=== PATIENT | female | born 1960 | race Caucasian/White ===

== ENCOUNTER 2017-07-10 08:28 | Emergency (ER) | payer OTHER, SELFPAY ==
[2017-07-10 08:35] VITALS: BP 144/90; PULSE 85; RESP 20; TEMP 36.8; O2SAT 96; BMI 23.5
[2017-07-10 09:03] LABS: Strep Scrn Group A (Rapid) Negative (Negative)
--- NOTE | 2017-07-10 09:20 | HMH.EDGENADL ---
ED Disposition Clinical Impression: Acute bronchitis Qualifiers: Bronchitis organism: unspecified organism Qualified Code(s): J20.9 - Acute bronchitis, unspecified Disposition: Home, Self-Care Condition on Discharge: Good Additional Instructions: Please take antibiotics prescribed as directed, follow-up with PCP if not better. Prescriptions: Amoxicillin/Potassium Clav [Augmentin 875-125 Tablet] 1 tab PO Q12H #20 tab Referrals: Ady Blue MD [Primary Care Provider] - Time of Disposition: 09:20 - Critical Care Critical Care Time: No Attestation: On 07/10/17, the high probability of a clinically significant, sudden or life threatening deterioration of the following system(s) required my full and direct attention, intervention and personal management. The time I documented below is in addition to time spent performing reported procedures but includes the following listed in this critical care notation. Medical Decision Making - Medical Records Medical records reviewed: Yes: I reviewed the patient's medical records. Vital Signs: 07/10/17 08:35 07/10/17 09:32 Temperature 98.2 F 98.2 F Temperature Source Oral Oral Pulse Rate 71 Pulse Rate [Right Radial] 85 Respiratory Rate 20 20 Blood Pressure 128/87 Blood Pressure [Right Arm] 144/90 Blood Pressure Mean [Right Arm] 108 Blood Pressure Source Automatic Cuff Blood Pressure Source [Right Arm] Automatic Cuff Blood Pressure Position Sitting Blood Pressure Position [Right Arm] Sitting 02 Sat by Pulse Oximetry 96 Oxygen Delivery Method Room Air Room Air - Lab Data Lab Results 07/10/17 08:48: Influenza Type A Ag Negative, Influenza Type B Ag Negative, Group A Strep Rapid Negative - Radiology Data #1 Image(s): Chest Image Reviewed: Yes I reviewed the patient's radiology image, Yes I have reviewed radiologist's interpretation Preliminary Findings: Normal/NAD - See Inquiry Pt receiving controlled substance: No - Reevaluation(s) Time: 09:15 Reevaluation #1: Upon reevaluation patient appears stable, no acute distress. Advise patient of results obtained and need to initiate antibiotic treatment at this time. She will follow-up with PCP if not better per discharge instructions. General Adult HPI - General Chief complaint: Upper Respiratory Infection Stated complaint: congestion back aching rib pain Mode of Arrival: Ambulatory Limitations: No Limitations - History of Present Illness HPI narrative: This is a 57-year-old female patient arriving to the emergency room with productive cough, congestion, subjective fever, for the past 2-3 days. Patient denies any recent travel or exposure to sick contacts. Onset (ago): day(s) (2) Location: chest Radiation: back Severity: moderate Severity scale (1-10): 4 Quality: aching Consistency: intermittent Relieving factors: cold therapy - Related Data Previous Rx's Medication Instructions Recorded Amoxicillin/Potassium Clav 1 tab PO Q12H #20 tab 07/10/17 [Augmentin 875-125 Tablet] Allergies Allergy/AdvReac Type Severity Reaction Status Date / Time Sulfa (Sulfonamide Allergy Unknown Unverified 07/05/17 08:45 Antibiotics) [SULFA (SULFONAMIDE ANTIBIOTICS)] [facility] History I have reviewed the patient's past medical history: Yes Other Surgeries: Yes: - *Social History Smoking Status: Never smoker Alcohol Intake: never Substance Use Type: denies use - Psychiatric History Expresses thoughts of harming self/others: None Suicide Plan Description: No Plan *Family Hx:: Anemia, Cancer ROS Obtained: Yes All systems reviewed & no additional complaints - Respiratory Respiratory: Yes as per HPI, Yes chest congestion, Yes dyspnea Physical Exam - General General appearance: alert, in no apparent distress - ENT ENT exam: Present: normal exam, normal oropharynx, mucous membranes moist, TM's normal bilaterally, normal external ear e
[2017-07-10 09:32] VITALS: BP 128/87; PULSE 71; RESP 20; TEMP 36.8; O2SAT 100
== END 2017-07-10 09:37 | disposition home or self-care (01) ==
PROVIDERS: Emergency Provider Emergency Medicine; Family Provider Family Medicine; PCP Family Medicine
DX: J20.9 Acute bronchitis, unspecified (principal)
CPT/HCPCS: 87275; 87276; 87430; 99282

== ENCOUNTER → 2019-05-22 20:06 | Outpatient (CLI) | payer OTHER, SELFPAY ==
[2019-05-22 20:09] LABS: Microscopic, Urine URINE MICROSCOPIC (MICROSCOPIC)
[2019-05-22 20:46] LABS: Appearance,Urine CLEAR (Clear); Bilirubin,Urine Negative (Negative); Blood, Urine TRACE-I (Negative); Color,Urine YELLOW (Yellow); Glucose,Urine (UA) Negative (Negative); Ketones,Urine Negative (Negative); Leukocyte Esterase,Urine 2+ (Negative); Nitrate,Urine Negative (Negative); PH,Urine 6.5 (5.0-8.5); Protein,Urine Negative (Negative); Specific Gravity, Urine <= 1.005 (1.005-1.030); Urobilinogen,Urine 0.2 EU/dl (0.2)
[2019-05-22 21:24] LABS: Bacteria,Urine Trace /lpf; Squamous Epithelial Cell,Urine Occasional #/hpf (0-5)
== END ==
PROVIDERS: Visit Provider Nurse Practitioner Family
DX: R30.0 Dysuria (principal)
CPT/HCPCS: 81001; 87086; 87088; 87186

== ENCOUNTER 2020-07-06 19:43 | Emergency (ER) | payer OTHER, SELFPAY ==
[2020-07-06 20:04] VITALS: BP 160/114; PULSE 117; RESP 18; TEMP 36.5; O2SAT 96; BMI 26.6
--- NOTE | 2020-07-06 20:09 | CT_ITS ---
PROCEDURE: CT HEAD/BRAIN WO CON CLINICAL INDICATION: fall, hit face Head injury with headache/pain, contusion, abrasion or hematoma COMPARISON: No exams were available for comparison TECHNIQUE: Axial images obtained. All CT scans at the facility use one or more dose reduction, viz: automated exposure control, ma/kV adjustment per patient size (including targeted exams where dose is matched to indication, i.e. head), or iterative reconstruction technique. FINDINGS: No midline shift, mass effect, intracranial hemorrhage, hydrocephalus, or extra-axial fluid collection is evident. The calvarium has an unremarkable appearance. No mastoid effusion. No sinus air-fluid level. IMPRESSION: No acute intracranial finding Dictated by: Brandon Oliva MD 07/07/2020 06:03 Brandon Oliva MD in [place] 07/07/2020 06:03
--- NOTE | 2020-07-06 20:09 | XR_ITS ---
PROCEDURE: XR CHEST PORTABLE CLINICAL HISTORY: Pain following injury COMPARISON: No exams were available for comparison FINDINGS: The cardiomediastinal silhouette and pulmonary vascularity are within normal limits. Atelectatic change versus fibrosis left lung base. The remaining lungs are clear. No acute bony abnormalities. IMPRESSION: Left lower lobe atelectasis versus scarring otherwise negative Dictated by: Brandon Oliva MD 07/07/2020 05:16 Brandon Oliva MD in [facility] 07/07/2020 05:16
--- NOTE | 2020-07-06 20:09 | XR_ITS ---
PROCEDURE: XR PELVIS 1-2V CLINICAL INDICATION: Trauma protocol pain COMPARISON: No exams were available for comparison TECHNIQUE: XR Pelvis AP View FINDINGS: No fracture or dislocation is evident. No significant degenerative change. No lytic or blastic change. IMPRESSION: No acute findings. Dictated by: Brandon Oliva MD 07/07/2020 05:17 Brandon Oliva MD in [facility] 07/07/2020 05:17
--- NOTE | 2020-07-06 20:09 | CT_ITS ---
PROCEDURE: CT CERVICAL SPINE WO CON CLINICAL INDICATION: fall, hit face Neck injury with pain, contusion/abrasion or hematoma, cervical sprain/strain the COMPARISON: No exams were available for comparison TECHNIQUE: Axial images obtained with sagittal and coronal reformats. All CT scans at the facility use one or more dose reduction, viz: automated exposure control, ma/kV adjustment per patient size (including targeted exams where dose is matched to indication, i.e. head), or iterative reconstruction technique. Axial spiral CT scanning performed of the cervical spine beginning at the base of the skull and continuing to the upper T-spine. 3-D multiplanar reconstruction with 3-D manipulation of volumetric data set in image rendering was completed by the radiologist and/or technologist with the supervision of the radiologist on independent workstation. FINDINGS: There is normal alignment. No fracture or dislocation evident. No lytic or blastic change. There is degenerative disc disease at C3-C4 C4-C5 C5-C6 and C6-C7. There is 3 mm anterolisthesis of C7 on T1 which may be degenerative in nature. Facet and uncovertebral hypertrophy is present. There is a small right paracentral disc osteophyte complex at C3-C4 causing right-sided foraminal narrowing. Canal stenosis is present at C5-C6 and C6-C7 with bilateral foraminal narrowing at C5-C6. An 8 mm hypodense nodule is present in the left lobe of the thyroid gland. There is moderate bilateral osteoarthritic change of the TMJs. IMPRESSION: 1. No acute fracture. 2. Multilevel cervical spondylosis as detailed above Dictated by: Brandon Oliva MD 07/07/2020 06:08 Brandon Oliva MD in [facility] 07/07/2020 06:08
--- NOTE | 2020-07-06 20:09 | CT_ITS ---
PROCEDURE: CT FACIAL BONES WO CON CLINICAL HISTORY: fall, hit face Pain and swelling following injury COMPARISON: CT CT CERVICAL SPINE WO CON from 07/06/2020 TECHNIQUE: Axial images obtained with sagittal and coronal reformats. All CT scans at the facility use one or more dose reduction, viz: automated exposure control, ma/kV adjustment per patient size (including targeted exams where dose is matched to indication, i.e. head), or iterative reconstruction technique. FINDINGS: Suspect nondisplaced fracture involving the right medial maxillary incisor root with associated soft tissue swelling. Left medial maxillary incisor is missing. There is a defect involving the medial aspect of the right maxillary medial incisor. No sinus air-fluid level or other significant anomalies evident. IMPRESSION: Dental injury with suspected nondisplaced fracture of the right paramedian maxilla with missing left medial maxillary incisor and defect involving the medial aspect of the right medial maxillary incisor with soft tissue swelling Dictated by: Brandon Oliva MD 07/07/2020 06:13 Brandon Oliva MD in [place] 07/07/2020 06:13
[2020-07-06 20:27] LABS: Basophils # 0.1 K/mm3 (0-0.2); Basophils % 1.2 % (0.1-2.0); Eosinophils # 0.1 K/mm3 (0.0-0.4); Eosinophils % 1.6 % (0.1-12.0); Hematocrit 42.3 % (37.0-47.0); Hemoglobin 14.9 g/dL (12.2-16.2); Lymphocytes # 2.5 K/mm3 (0.7-4.5); Lymphocytes % 38.2 % (10-50); Mean Corpuscular HGB Conc 35.2 g/dL (31.8-35.4); Mean Corpuscular Volume 90.8 fl (81-99); Mean Platelet Volume 7.9 fl (7.4-10.4); Monocytes # 0.3 K/mm3 (0.1-1.0); Monocytes % 4.1 % (1.7-9.3); Neutrophils # 3.7 K/mm3 (1.8-7.8); Neutrophils % 54.9 % (37.0-80.0); Platelet Count 340 K/mm3 (142-424); Red Blood Count 4.66 M/mm3 (4.20-5.40); White Blood Count 6.7 K/mm3 (4.8-10.8)
[2020-07-06 20:28] LABS: Chloride 105 mmol/L (98-107); Sodium 141 mmol/L (136-145)
[2020-07-06 20:29] LABS: Potassium 4.2 mmoL/L (3.5-5.1)
--- NOTE | 2020-07-06 20:30 | PC.NURSE ---
tooth placed in milk. pt to rad for diagnostic exams
[2020-07-06 20:31] LABS: Alanine Aminotransferase 17 U/L (12-78); Albumin Level 5.2 g/dl (3.5-5.0); Alkaline Phosphatase 83 U/L (38-126); Anion Gap 14.2 mEq/L (5-15); Aspartate Amino Transferase 37 U/L (14-36); Bilirubin,Direct 0.2 mg/dl (0.0-0.4); Bilirubin,Indirect 0.1 mg/dL (0.0-0.9); Bilirubin,Total 0.3 mg/dl (0.2-1.3); Bilirubin,Unconjugated 0.1 mg/dL (0.0-1.1); Blood Urea Nitrogen 9 mg/dl (7-17); Calcium 10.1 mg/dl (8.4-10.2); Carbon Dioxide 26 mmol/L (22.0-30.0); Creatinine Clearance Estimated 105 mL/min (50-200); Estimated Glomerular Filt Rate 86 ml/min (>60); GFR (African American) 104 ML/MIN (>60); Glucose 106 mg/dl (74-100); Total Protein,Serum 8.1 g/dl (6.3-8.2)
[2020-07-06 20:32] LABS: Ethyl Alcohol 171 mg/dl (0-10)
--- NOTE | 2020-07-06 20:49 | HMH.EDFALL ---
ED Disposition Clinical Impression: Maxillary fracture Qualifiers: Encounter type: initial encounter Fracture type: closed Laterality: right Qualified Code(s): S02.40CA - Maxillary fracture, right side, initial encounter for closed fracture Dental trauma Qualifiers: Encounter type: initial encounter Qualified Code(s): S09.93XA - Unspecified injury of face, initial encounter Fall Qualifiers: Encounter type: initial encounter Qualified Code(s): W19.XXXA - Unspecified fall, initial encounter Disposition: Home, Self-Care Condition on Discharge: Good Instructions: DI for Dental Pain Additional Instructions: ice and call dentist in am Prescriptions: clindamycin HCL [Clindamycin HCl] 300 mg PO TID #30 cap Transmission Status: Pending to [facility] #[id number] Referrals: Ady Blue MD [Primary Care Provider] - - Critical Care Critical Care Time: No Attestation: On 07/06/20, the high probability of a clinically significant, sudden or life threatening deterioration of the following system(s) required my full and direct attention, intervention and personal management. The time I documented below is in addition to time spent performing reported procedures but includes the following listed in this critical care notation. Medical Decision Making - Medical Records Medical records reviewed: Yes: I reviewed the patient's medical records. - See Inquiry Pt receiving controlled substance: No Vital Signs: 07/06/20 20:04 Temperature 97.7 F Temperature Source Oral Pulse Rate [Right Brachial] 117 H Respiratory Rate 18 Blood Pressure [Right Arm] 160/114 H Blood Pressure Mean [Right Arm] 129 Blood Pressure Source [Right Arm] Automatic Cuff Blood Pressure Position [Right Arm] Sitting 02 Sat by Pulse Oximetry 96 Oxygen Delivery Method Room Air - Lab Data Lab results reviewed: Yes: I reviewed the patient's lab results. Lab Results 07/06/20 20:15: WBC 6.7, RBC 4.66, Hgb 14.9, Hct 42.3, MCV 90.8, MCH 32.0 H, MCHC 35.2, RDW 14.0, Plt Count 340, MPV 7.9, Neut % (Auto) 54.9, Lymph % (Auto) 38.2, [place] % (Auto) 4.1, Eos % (Auto) 1.6, Baso % (Auto) 1.2, Neut # (Auto) 3.7, Lymph # (Auto) 2.5, [place] # (Auto) 0.3, Eos # (Auto) 0.1, Baso # (Auto) 0.1 07/06/20 20:15: Sodium 141, Potassium 4.2, Chloride 105, Carbon Dioxide 26, Anion Gap 14.2, BUN 9, Creatinine 0.70, Estimated Creat Clear 105, Estimated GFR 86, Est GFR ( Amer) 104, Glucose 106 H, Calcium 10.1, Total Bilirubin 0.3, Direct Bilirubin 0.2, Conjugated Bilirubin 0.0, Indirect Bilirubin 0.1, Unconjugated Bilirubin 0.1, AST 37 H, ALT 17, Alkaline Phosphatase 83, Total Protein 8.1, Albumin 5.2 H 07/06/20 20:15: Plasma/Serum Alcohol 171 H Result diagrams: 07/06/20 20:15 07/06/20 20:15 Orders (Tests/Meds): ORDERS Category Date Time Status CT cervical spine wo con Stat Cat Scan 07/06/20 20:[address] facial bones wo con Stat Cat Scan 07/06/20 20:[address] head/brain wo con Stat Cat Scan 07/06/20 20:09 Taken Chest XR -- portable [XR chest portable] Stat Exams 07/06/20 20:09 Taken XR pelvis 1-2V Stat Exams 07/06/20 20:09 Taken - Radiology Data #1 Image(s): Chest, Pelvis Image Reviewed: Yes I reviewed the patient's radiology image Preliminary Findings: No Fracture Seen - CT Data CT Scan: Head, C-Spine, Other (facial) Time Received: 21:[address] Reviewed: Yes: I discussed the CT results w/the radiologist Preliminary Findings: Abnormal (dental trauma/maxilla fx ) Medical Decision Narrative: will need to call dentist in am Fall HPI - General Chief Complaint: Fall Stated Complaint: ao 2/2 fell hit on face missing teeth Time Seen by Provider: 07/06/20 20:15 Mode of Arrival: Family Vehicle Source of Information: Patient, Medical Record Limitations: No Limitations Description of Symptoms (Recalled from ER Triage Doc. by RN): leaving local restaraunt, slipped on ice and landed on her face. one front tooth broke out of her mouth f
[2020-07-06 21:41] VITALS: BP 118/75; PULSE 73; RESP 19; TEMP 36.9; O2SAT 98
== END 2020-07-06 21:44 | disposition home or self-care (01) ==
PROVIDERS: Emergency Medicine; Emergency Provider Emergency Medicine; PCP Family Medicine
DX: S02.40CA Maxillary fracture, right side, initial encounter for closed fracture (principal); S09.93XA Unspecified injury of face, initial encounter; K08.109 Complete loss of teeth, unspecified cause, unspecified class; W00.2XXA Other fall from one level to another due to ice and snow, initial encounter; Y92.511 Restaurant or cafe as the place of occurrence of the external cause; Z88.2 Allergy status to sulfonamides
CPT/HCPCS: 70450; 70486; 71045; 72125; 72170; 80048; 80076; 85025; 99282

== ENCOUNTER 2020-11-28 09:54 | Emergency (ER) | payer OTHER, SELFPAY ==
[2020-11-28 09:55] VITALS: BP 144/89; PULSE 118; RESP 23; TEMP 37.4; O2SAT 98; BMI 27.8
--- NOTE | 2020-11-28 10:18 | HMH.EDUTC ---
[facility] [place] Disposition Clinical Impression: Rash Disposition: Home, Self-Care Condition on Discharge: Good Instructions: Poison [place], Poison [place], Poison [place], DI for General Allergic Reactions Additional Instructions: Oatmeal bathes may help with itching and drying up of the rash Calamine lotion may help to dry the rash Over the counter Benadryl may help with itching associated with rash Start Oral Steriods tomorrow Return if needed Follow up with Family Doctor Look around and make sure that there is nothing growing around you that may be causing breakout Keep your rash clean and dry: Wash it with soap and water. Gently pat it dry with a clean towel. Try not to scratch or rub your rash: This can cause your skin to become infected. Use a compress on your rash: Dip a clean washcloth in cool water. Wring it out and place it on your rash. Leave the washcloth on your skin for 15 minutes. Do this at least 3 times per day. Wear skin protection: Wear long pants, a long-sleeved shirt, and gloves. Use a skin block lotion to protect your skin from poison cassandra oil. You can find this at a drugstore without a prescription. Wash clothing after possible exposure: If you think you have been near a poison cassandra plant, wash the clothes you were wearing separately from other clothes. Rinse the washing machine well after you take the clothes out. Scrub boots and shoes with warm, soapy water. Dry clean items and clothing that you cannot wash in water. Poison cassandra oil is sticky and can stay on surfaces for a long time. It can cause a new rash even years later. Bathe your pet: Use warm water and shampoo on your pet's fur. This will prevent the spread of oil to your skin, car, and home. Wear long sleeves, long pants, and gloves while washing pets or any items that may have oil on them. Reduce exposure to poison cassandra: Do not touch plants that look like poison cassandra. Keep your yard free of poison cassandra. While protecting your skin, remove the plant and the roots. Place them in a plastic bag and seal the bag tightly. Do not burn poison cassandra plants: This can spread the oil through the air. If you breathe the oil into your lungs, you could have swelling and serious breathing problems. Oil that clings to the fire wilver can land on your skin and cause a rash. Prescriptions: predniSONE [Prednisone 10mg Tab Dose-Pack] 10 mg PO UD DOSE PK 6 Days #21 pack Transmission Status: Pending to [facility] #[id number] Referrals: Ady Blue MD [Primary Care Provider] - As needed Time of Disposition: 10:47 Medical Decision Making - See Inquiry Pt receiving controlled substance: No See was queried for this patient: No Vital Signs: 11/28/20 09:55 11/28/20 10:33 Temperature 99.4 F 99.4 F Temperature Source Oral Pulse Rate 118 H Pulse Rate [Left Brachial] 118 H Respiratory Rate 23 23 Blood Pressure 144/89 H Blood Pressure [Left Arm] 144/89 H Blood Pressure Mean [Left Arm] 107 Blood Pressure Source [Left Arm] Automatic Cuff Blood Pressure Position [Left Arm] Sitting 02 Sat by Pulse Oximetry 98 Oxygen Delivery Method Room Air Orders (Tests/Meds): ED MEDICATIONS Discontinued Medications Generic Name Dose Route Start Last Admin Trade Name Silver PRN Reason Stop Dose Admin Methylprednisolone Sodium Succinate 125 mg 11/28/20 10:22 11/28/20 10:27 Methylprednisolone Sod Succ 125mg Vial IM 11/28/20 10:23 125 mg ONCE ONE Administration Medical Decision Narrative: Patient reports that she has taken Prednisone in the past without complications or reactions [facility] [place] HPI - General Stated complaint: red splotches on face and neck Time Seen by Provider: 11/28/20 10:18 Mode of Arrival: Ambulatory Source of Information: Patient Limitations: No Limitations Description of Symptoms (Recalled from Triage Doc. by RN): PATIENT C/O ITCHY RASH ALL OVER THAT STARTED SUNDAY. UKNOWN ORIGIN HEENT Symptoms (Recalled from RN notes): No Resp Symptoms (Recalled from R
[2020-11-28 10:33] VITALS: BP 144/89; PULSE 118; RESP 23; TEMP 37.4; O2SAT 98
== END 2020-11-28 10:55 | disposition home or self-care (01) ==
PROVIDERS: Emergency Provider Nurse Practitioner; PCP Family Medicine
DX: R21 Rash and other nonspecific skin eruption (principal)
CPT/HCPCS: 96372; 99202; G0463

== ENCOUNTER 2022-07-04 10:54 | Emergency (ER) | payer OTHER, SELFPAY ==
[2022-07-04 11:00] VITALS: BP 151/91; PULSE 101; RESP 18; TEMP 36.8; O2SAT 98; BMI 26.1
[2022-07-04 11:17] VITALS: BP 151/91; PULSE 101; RESP 18; TEMP 36.8; O2SAT 98
[2022-07-04 11:17] LABS: Apearance,Urine Cloudy (Clear); Bilirubin,Urine Negative (Negative); Blood, Urine 3+ (Negative); Color,Urine Dark Yellow (Yellow); Glucose,Urine (UA) Negative (Negative); Ketones,Urine TRACE (Negative); Protein,Urine 2+ (Negative); UTC Leukocyte Esterase,Urine 3+ (Negative); UTC Nitrate,Urine Positive (Negative); Urobilinogen,Urine 0.2 EU/dl (0.2)
--- NOTE | 2022-07-04 11:19 | EXP.UTC ---
Discharge Plan Disposition Patient Disposition: Home, Self-Care Condition: Good Prescriptions Prescriptions: New cefdinir 300 mg capsule 300 mg PO BID Qty: 20 0RF phenazopyridine [Pyridium] 200 mg tablet 200 mg PO Q8H 2 Days Qty: 6 0RF Referrals Follow up/Referrals: Ady Blue MD [Primary Care Provider] - See instructions Activity Restrictions/Add. Instructions Additional Instructions/Restrictions: *Increase fluids. Water not Soda or Tea *Start antibiotic immediately and be sure to take as ordered for the FULL length of time although you should start to see improvement over the next 48 hours *Pyridium as needed Remember this medication will turn your urine . This is normal but it will stain what ever it gets on *You should not use Pyridium for more than 48 hours. If so , follow up with your primary physician to review urine culture and ensure that antibiotic is adequate for infection *Be SURE to follow up anytime for new or worsening symptoms with your family doctor. AND in 48 hours for urine culture results with your family doctor, if you do not have a doctor then you may call back to the [facility] for urine culture results and further treatment. We do recommend that you choose and establish care with a Primary Care Physician. ?AND follow up with them ?in 10-14 days to repeat UA to ensure infection is resolved and blood no longer present *Be sure to let your PCP know that we sent urine cultures from the [facility] so they can follow up to ensure that you area the on the correct antibiotic Call your doctor office and make appointment for 48 hours (2 days from today) ?to follow up and get the results of your urine culture and further treatment Clinical Impressions Clinical Impression: UTI (urinary tract infection) Instructions Patient Instructions: DI for Urinary Tract Infection (UTI), Urinary Tract Infection Discharge ED Provider: Ana M Berumen [facility] [place] HPI General Stated complaint: Possible UTI burn w/urination Mode of Arrival: Ambulatory Source of Information: Patient Limitations: No Limitations Time Seen by Provider: 07/04/22 11:19 Description of Symptoms (Recalled from Triage Doc. by RN): PATIENT C/O BLADDER PRESSURE AND URINARY FREQUENCY SINCE SUNDAY HEENT Symptoms (Recalled from RN notes): No Resp Symptoms (Recalled from RN notes): No Skin Symptoms (Recalled from RN notes): No MS Symptoms (Recalled from RN notes): No Functional Status (Recalled from RN notes): WNL History of Present Illness Provider Complaint: Patient states that over the weekend she started with burning with urination and bladder pressure along with frequency and urgency like she gets when she has a UTI States that it has continued to get worse so she came in to get it checked to see if she needed an antibiotic Related Data Previous Rx's Medication Instructions Recorded cefdinir 300 mg capsule 300 mg PO BID #20 caps 07/04/22 phenazopyridine 200 mg tablet 200 mg PO Q8H pain 2 days #6 tabs 07/04/22 (Pyridium) Allergies Allergy/AdvReac Type Severity Reaction Status Date / Time Sulfa (Sulfonamide Allergy Unknown Verified 05/02/22 08:24 Antibiotics) [SULFA (SULFONAMIDE ANTIBIOTICS)] Worker's Comp Is this a Worker's Comp case?: No [facility] Disclaimer: The information contained in this section may have been updated after the patient was seen, as this information can be updated by other users. Medical History (Updated 07/04/22 @ 11:27 by Ana M Berumen APRN) Urinary tract infection Surgical History (Updated 07/04/22 @ 11:16 by Franny Castillo RN) History of section History of tonsillectomy History of tubal ligation Social History (Updated 07/04/22 @ 11:16 by Franny Castillo RN) Smoking Status: Never smoker alcohol intake: never substance use type: denies use current occupational status: other Travel in the last 8 weeks: None ROS Obtained: Yes All systems reviewed & n
== END 2022-07-04 11:34 | disposition home or self-care (01) ==
PROVIDERS: Emergency Provider Nurse Practitioner; PCP Family Medicine
DX: N39.0 Urinary tract infection, site not specified (principal)
CPT/HCPCS: 81003; 99212; 99213; G0463

== ENCOUNTER → 2023-05-01 08:12 | Outpatient (CLI) | payer BC, SELFPAY ==
[2023-05-01 17:55] LABS: Basophils % 0.5 % (0.1-2.0); Eosinophils # 0.1 K/mm3 (0.0-0.4); Eosinophils % 0.8 % (0.1-12.0); Hematocrit 44.9 % (37.0-47.0); Hemoglobin 14.6 g/dL (12.2-16.2); Lymphocytes # 1.9 K/mm3 (0.7-4.5); Lymphocytes % 26.7 % (10-50); Mean Corpuscular HGB Conc 32.4 g/dL (31.8-35.4); Mean Corpuscular Hemoglobin 29.9 pg (27.0-31.2); Mean Corpuscular Volume 92.4 fl (81-99); Mean Platelet Volume 9.2 fl (7.4-10.4); Monocytes # 0.3 K/mm3 (0.1-1.0); Monocytes % 4.3 % (1.7-9.3); Neutrophils # 4.7 K/mm3 (1.8-7.8); Neutrophils % 67.7 % (37.0-80.0); Platelet Count 376 K/mm3 (142-424); Red Blood Count 4.86 M/mm3 (4.20-5.40); Red Cell Distribution Width 13.3 % (11.5-17.5); White Blood Count 6.9 K/mm3 (4.8-10.8)
[2023-05-01 17:56] LABS: Alanine Aminotransferase 19 U/L (12-78); Albumin Level 5.1 g/dl (3.5-5.0); Albumin/Globulin Ratio 2.2 (1.1-1.8); Alkaline Phosphatase 90 U/L (38-126); Anion Gap 15.5 mEq/L (5-15); Aspartate Amino Transferase 36 U/L (14-36); Bilirubin,Total 0.6 mg/dl (0.2-1.3); Blood Urea Nitrogen 9 mg/dl (7-17); Calcium 9.3 mg/dl (8.4-10.2); Carbon Dioxide 28 mmol/L (22.0-30.0); Chloride 99 mmol/L (98-107); Chol/HDL Ratio 2.8 (1-3.5); Cholesterol 238 mg/dl (140-200); Estimated Glomerular Filt Rate 85 ml/min (>60); GFR (African American) 103 ML/MIN (>60); Globulin 2.3 g/dL (1.3-3.2); Glucose 76 mg/dl (74-100); HDL Cholesterol 85 mg/dl (40-60); Potassium 4.5 mmoL/L (3.5-5.1); Sodium 138 mmol/L (136-145); Total Protein,Serum 7.4 g/dl (6.3-8.2); Triglycerides 135 mg/dl (30-150); VLDL Cholesterol 27 mg/dL (0-40)
[2023-05-01 18:07] LABS: Direct LDL Cholesterol 114.71 mg/dL (100-129)
[2023-05-01 18:12] LABS: Hemoglobin A1C 5.1 % (4.0-6.0)
[2023-05-01 18:13] LABS: Free T4 (Free Thyroxine) 1.23 ng/dl (0.78-2.19)
[2023-05-01 18:14] LABS: 25-OH Vitamin D, Total 31.9 ng/mL (30-100)
[2023-05-01 18:27] LABS: Thyroid Stimulating Hormone 1.57 uIU/mL (0.465-4.68)
[2023-05-01 18:46] LABS: Vitamin B12 433 pg/mL (239-931)
== END ==
PROVIDERS: PCP Nurse Practitioner Family; Visit Provider Nurse Practitioner Family
DX: R53.83 Other fatigue (principal); I10 Essential (primary) hypertension; Z13.1 Encounter for screening for diabetes mellitus; Z13.220 Encounter for screening for lipoid disorders; Z68.27 Body mass index [BMI] 27.0-27.9, adult
CPT/HCPCS: 80053; 80061; 82306; 82607; 83036; 84439; 84443; 85025

== ENCOUNTER → 2023-05-23 09:29 | Outpatient (CLI) | payer BC, SELFPAY ==
--- NOTE | 2023-05-23 09:30 | MM_ITS ---
PROCEDURE INFORMATION: Exam: MG Bilateral Screening 3D Mammography Exam date and time: 05/23/2023 9:23 AM Age: 63 years old Clinical indication: Screening mammogram TECHNIQUE: Imaging protocol: Bilateral Screening tomosynthesis and 2D mammography including computer-aided detection (CAD) when performed. COMPARISON: No relevant prior studies available. FINDINGS: MAMMOGRAPHY: Breast composition: There are scattered areas of fibroglandular density. Mass: None. Architectural distortion: No new or suspicious architectural distortion. Calcifications: No new or suspicious calcifications are present Asymmetric density: No new or suspicious asymmetric density is present Skin thickening: None. Axillary adenopathy: None. IMPRESSION: No mammographic evidence of malignancy. Recommend annual screening mammography unless otherwise clinically indicated. ASSESSMENT: BI-RADS category 1: Negative
--- NOTE | 2023-05-23 09:30 | XR_ITS ---
FINAL REPORT CLINICAL HISTORY: Osteoporosis screening COMPARISON: None FINDINGS: Using L1-4, the bone mineral density of the spine is 1.048 g/cm2, corresponding to T-score of 0.0, within normal limits. Using the left hip, the bone mineral density of the femoral neck is 0.726 g/cm2, corresponding to a T-score of -1.1, consistent with osteopenia. Using the right hip, the bone mineral density of the femoral neck is 0.733 g/cm2, corresponding to a T-score of -1.0, within normal limits. FRAX 10 year fracture risk is 0.5% for a hip fracture and 7.7% for a major osteoporotic fracture. NOTE: T-score: Standard deviation compared with peak bone mass of young adult mean. *Following the recommendations of the International Society of Bone densitometry, classification of hip BMD is based on the lower of two T-scores; total hip or femoral neck. IMPRESSION: Diminished bone mineral density consistent with osteopenia. Reviewed, Interpreted and Dictated by Rohit Summers MD Transcribed by Rosa Maria Arevalo Authenticated and [facility]
== END ==
PROVIDERS: PCP Nurse Practitioner Family; Visit Provider Nurse Practitioner Family
DX: Z12.31 Encounter for screening mammogram for malignant neoplasm of breast (principal); Z13.820 Encounter for screening for osteoporosis
CPT/HCPCS: 77063; 77067; 77080

== ENCOUNTER 2024-05-08 12:58 | Outpatient (CLI) | payer BC, SELFPAY ==
[2024-05-08 12:48] LABS: Microscopic, Urine URINE MICROSCOPIC (MICROSCOPIC)
[2024-05-08 13:18] LABS: Basophils % 0.6 % (0.1-2.0); Eosinophils # 0.1 K/mm3 (0.0-0.4); Eosinophils % 1.8 % (0.1-12.0); Hematocrit 40.8 % (37.0-47.0); Hemoglobin 13.4 g/dL (12.2-16.2); Lymphocytes # 1.2 K/mm3 (0.7-4.5); Lymphocytes % 16.8 % (10-50); Mean Corpuscular HGB Conc 32.9 g/dL (31.8-35.4); Mean Corpuscular Hemoglobin 30.1 pg (27.0-31.2); Mean Corpuscular Volume 91.5 fl (81-99); Mean Platelet Volume 8.5 fl (7.4-10.4); Monocytes # 0.3 K/mm3 (0.1-1.0); Monocytes % 4.1 % (1.7-9.3); Neutrophils # 5.6 K/mm3 (1.8-7.8); Neutrophils % 76.7 % (37.0-80.0); Platelet Count 327 K/mm3 (142-424); Red Blood Count 4.46 M/mm3 (4.20-5.40); Red Cell Distribution Width 13.5 % (11.5-17.5); White Blood Count 7.3 K/mm3 (4.8-10.8)
[2024-05-08 13:30] LABS: Alanine Aminotransferase 15 U/L (12-78); Albumin Level 4.6 g/dl (3.5-5.0); Albumin/Globulin Ratio 2.4 (1.1-1.8); Alkaline Phosphatase 83 U/L (38-126); Aspartate Amino Transferase 33 U/L (14-36); Bilirubin,Total 0.7 mg/dl (0.2-1.3); Blood Urea Nitrogen 9 mg/dl (7-17); Calcium 9.4 mg/dl (8.4-10.2); Carbon Dioxide 26 mmol/L (22.0-30.0); Chloride 104 mmol/L (98-107); Estimated Glomerular Filt Rate 85 ml/min (>60); GFR (African American) 102 ML/MIN (>60); Globulin 1.9 g/dL (1.3-3.2); Glucose 82 mg/dl (74-100); Sodium 139 mmol/L (136-145); Total Protein,Serum 6.5 g/dl (6.3-8.2)
[2024-05-08 13:48] LABS: 25-OH Vitamin D, Total 28.8 ng/mL (30-100)
[2024-05-08 14:01] LABS: Thyroid Stimulating Hormone 1.94 uIU/mL (0.465-4.68)
[2024-05-08 14:20] LABS: Vitamin B12 344 pg/mL (239-931)
[2024-05-08 14:27] LABS: Appearance,Urine CLEAR (Clear); Bilirubin,Urine Negative (Negative); Blood, Urine Negative (Negative); Color,Urine YELLOW (Yellow); Glucose,Urine (UA) Negative (Negative); Ketones,Urine Negative (Negative); Leukocyte Esterase,Urine Negative (Negative); Nitrate,Urine Negative (Negative); Protein,Urine Negative (Negative); Specific Gravity, Urine <= 1.005 (1.005-1.030); Urobilinogen,Urine 0.2 EU/dl (0.2)
[2024-05-08 14:53] LABS: Iron 109 ug/dL (37-170)
[2024-05-08 15:05] LABS: Total Iron Binding Capacity 328 ug/dL (265-497)
[2024-05-08 15:13] LABS: Free T4 (Free Thyroxine) 1.04 ng/dl (0.78-2.19)
[2024-05-08 15:21] LABS: HIV (1&2) Antibody Rapid NONREACTIVE (NONREACTIVE)
[2024-05-08 15:30] LABS: Ferritin 79.3 ng/ml (11.1-264)
[2024-05-08 15:38] LABS: Bacteria,Urine Trace /lpf; Squamous Epithelial Cell,Urine Occasional #/hpf (0-5); WBC,Urine Occasional #/hpf (0-3)
[2024-05-09 05:11] LABS: HCV Ab Non Reactive (Non Reactive)
== END 2024-05-08 23:59 | disposition home or self-care (01) ==
LOC: LAB.DROPOF 12:58
PROVIDERS: PCP Nurse Practitioner Family; Visit Provider Nurse Practitioner Family
DX: Z11.59 Encounter for screening for other viral diseases (principal); Z13.29 Encounter for screening for other suspected endocrine disorder; Z13.1 Encounter for screening for diabetes mellitus; Z11.4 Encounter for screening for human immunodeficiency virus [HIV]; R53.83 Other fatigue; I10 Essential (primary) hypertension; E55.9 Vitamin D deficiency, unspecified; E53.8 Deficiency of other specified B group vitamins
CPT/HCPCS: 80050; 80053; 81001; 82306; 82607; 82728; 83036; 83540; 83550; 84156; 84439; 84443; 85025; 86803; 87086; 87389

== ENCOUNTER 2024-06-02 14:56 | Outpatient (CLI) | payer BC, SELFPAY ==
--- NOTE | 2024-06-02 14:56 | MM_ITS ---
PROCEDURE INFORMATION: Exam: MG Bilateral Screening 3D Mammography Exam date and time: 06/02/2024 2:41 PM Age: 64 years old Clinical indication: Screening examination TECHNIQUE: Imaging protocol: Bilateral Screening tomosynthesis and 2D mammography including computer-aided detection (CAD) when performed. COMPARISON: MG MM DIG SCREENING MAMM BI W/CAD 05/23/2023 9:23 AM FINDINGS: MAMMOGRAPHY: Breast composition: There are scattered areas of fibroglandular density. Mass: None. Architectural distortion: None. Calcifications: No suspicious calcifications. Asymmetric density: None. Skin thickening: None. Axillary adenopathy: None. IMPRESSION: No mammographic evidence of malignancy. Annual screening is recommended unless otherwise clinically indicated. ASSESSMENT: BI-RADS Category 1: Negative.
== END 2024-06-02 23:59 | disposition home or self-care (01) ==
LOC: RAD 14:56
PROVIDERS: PCP Nurse Practitioner Family; Visit Provider Nurse Practitioner Family
DX: Z12.31 Encounter for screening mammogram for malignant neoplasm of breast (principal)
CPT/HCPCS: 77063; 77067

== ENCOUNTER 2024-07-21 07:31 | Day surgery (SDC) | payer BC, SELFPAY ==
[2024-07-15 14:06] VITALS: BMI 25.5
[2024-07-21 07:46] VITALS: BP 161/98; PULSE 98; RESP 16; TEMP 36.3; O2SAT 97
[2024-07-21] MEDS: LACTATED RINGERS 1000ML 1,000 ML 50 ML IV (08:00)
--- NOTE | 2024-07-21 08:38 | P.PNANES_ITS ---
[facility] Disclaimer: The information contained in this section may have been updated after the patient was seen, as this information can be updated by other users. Medical History HTN (hypertension) Surgical History History of section History of tonsillectomy History of tubal ligation Family History Father Cancer Social History (Updated 07/21/24 @ 07:55 by Aysha Ramon RN) Smoking Status: Never smoker alcohol intake: never substance use type: denies use current occupational status: employed and retired Travel in the last 8 weeks: None caffeine: Yes Have you lived/traveled outside [place] in past 30 days?: No Contact w/someone who lives/traveled outside [place] past 30 days?: No Exposure to someone with infectious disease in past 14 days?: No Do you have a fever (greater than 100.4 F or 38 C)?: No Have you tested positive for COVID-19: No Exposed to someone with COVID-19 in past 14 days?: No Do you have a sore throat?: No Do you have a cough?: No Do you have any weakness?: No Are you experiencing any nausea/vomitting?: No Do you have any diarrhea?: No Are you experiencing any unusual bleeding?: No Do you have any muscle aches/pain?: No Do you have any abdominal pain?: No Are you experiencing loss of taste or smell?: No [facility] Anesthesia Checklist Patient Identification Patient Identification: Verbal (Name & ) Structural Data Admitted From: Home Planned Operative Procedure/s: colonoscopy NPO Status Verified Time NPO: 00:00 Airway Assessment Mallampati Score:: Class II C-Spine Mobility Assessed: Yes TMJ Mobility Assessed: Yes Dentition: Good Dentition Neurological Assessment Level of Consciousness: Awake, Alert and Appropriate Anesthesia Plan Anesthesia Risk discussed: Yes Anesthesia Plan: Verified ASA Class: II Anesthesia Type: MAC
[2024-07-21 09:43] VITALS: O2SAT 100
--- NOTE | 2024-07-21 09:48 | P.HP_ITS ---
History of Present Illness *Admission Date: 07/21/24 *Reason for visit:: Screening *History of present illness: Mrs. Padgett is a 64-year-old female who is here for initial screening colonoscopy. The examination is deemed medically necessary for screening colonoscopy. The patient has been seen, interviewed and examined prior to the procedure by both myself and the anesthesia provider. [facility] Disclaimer: The information contained in this section may have been updated after the patient was seen, as this information can be updated by other users. Medical History HTN (hypertension) Surgical History History of section History of tonsillectomy History of tubal ligation Family History Father Cancer Social History (Updated 07/21/24 @ 07:55 by Aysha Ramon RN) Smoking Status: Never smoker alcohol intake: never substance use type: denies use current occupational status: employed and retired Travel in the last 8 weeks: None caffeine: Yes Have you lived/traveled outside [place] in past 30 days?: No Contact w/someone who lives/traveled outside [place] past 30 days?: No Exposure to someone with infectious disease in past 14 days?: No Do you have a fever (greater than 100.4 F or 38 C)?: No Have you tested positive for COVID-19: No Exposed to someone with COVID-19 in past 14 days?: No Do you have a sore throat?: No Do you have a cough?: No Do you have any weakness?: No Are you experiencing any nausea/vomitting?: No Do you have any diarrhea?: No Are you experiencing any unusual bleeding?: No Do you have any muscle aches/pain?: No Do you have any abdominal pain?: No Are you experiencing loss of taste or smell?: No Other Medical History Have you received the Flu Vaccine for this season: No Have you received the Pneumonia Vaccine: No Review of Systems Review of Systems Review of systems (narrative): Negative *Cardiovascular Comments: Negative *Gastrointestinal Comments: Negative *Genitourinary Comments: Negative *Musculoskeletal Comments: Negative *Neurologic Comments: Negative Meds Home Medications and Allergies Home Medications ?Medication ?Instructions ?Recorded ?Confirmed ?Type irbesartan 75 mg tablet 75 mg PO DAILY 05/08/24 07/21/24 History cholecalciferol (vitamin D3) 50 50 mcg PO DAILY #90 caps 05/09/24 07/21/24 Rx mcg (2,000 unit) capsule sodium sul 1.479 gram-potas ch See Rx Instructions PO PER PKG DIR 07/10/24 Rx 0.188 gram-magnes sul 0.225 gram colonscopy #24 tabs tablet (Sutab) New Prescriptions to Start Prescriptions: Allergies Allergy/AdvReac Type Severity Reaction Status Date / Time lisinopril Allergy Mild Cough Verified 07/21/24 07:44 Sulfa (Sulfonamide Allergy Unknown Hives Verified 07/21/24 07:44 Antibiotics) (SULFA (SULFONAMIDE ANTIBIOTICS)) Exam Data for Last 24 hours Vital signs and Labs for Last 24 Hours: Temp Pulse Resp BP Pulse Ox O2 Del Method O2 Flow Rate 97.4 F L 98 H 16 161/98 H 97 Nasal Cannula 5 07/21/24 07:46 07/21/24 07:46 07/21/24 07:46 07/21/24 07:46 07/21/24 07:46 07/21/24 09:43 07/21/24 09:43 *Routine HEENT Exam Head: Present normocephalic Eye: Present EOMI and PERRL ENT: Present mucous membranes moist *Routine Neck Exam Neck: Present supple *Routine Respiratory Exam Respiratory: Present CTA bilaterally *Routine Cardiovascular Exam Cardiovascular: Present RRR *Routine Abdominal Exam Abdominal: Present soft and normoactive bowel sounds; Absent tenderness *Routine Rectal Exam Rectal:: deferred *Routine Genitalia Exam Genitalia:: deferred *Routine Extremities Exam Extremities: Absent cyanosis, clubbing or edema *Routine Skin Exam Skin: Present warm; Absent rash *Routine Neurological Exam Neurological: Present alert and oriented X3 Assessment and Plan *Assessment and plan (1) Screening for colon cancer: Status: Acute Category: Medical Code(s): Z12.11 - Encounter for screening for malignant neoplasm of colon Plan A/P: 1. Screening for colon cancer is the preprocedural diagnosis. The patient will be anesthetized/sedated using MAC sedation. The patient has been seen and examined. Cardiac and lung assessment prior to the examination is stable. Proceed with planned screening colonoscopy
--- NOTE | 2024-07-21 09:50 | P.PCN_ITS ---
[facility] Procedure Note Date: 07/21/24 Time: 10:04 Procedure Note:: Colonoscopy Procedure Report: Colonoscopy with cold snare polypectomy Endoscopist: Sav Rosa II, MD Referring physician: MARY GRACE Zapien Date of Procedure: July 21, 2024 Equipment: Olympus 190 variable stiffness pediatric colonoscope Sedation: MAC sedation Indication: Mrs. Padgett is a 64-year-old female who is here for initial screening colonoscopy. She reports no abdominal pain, weight loss, change in he r bowel habits or rectal bleeding. She reports no family history of colon cancer. Procedure: Prior to the procedure, a history and physical exam was performed, and patient's medications and allergies were reviewed. The risks, benefits and alternatives of the sedation and procedure were discussed with the patient. All questions were answered and informed consent was obtained. The patient was brought to the procedure room. Patient identification and proposed procedure were verified by the physician and the nurse. The patient was placed in a left lateral decubitus position and the scope was passed under direct vision. Throughout the procedure, the patient's blood pressure, pulse, and oxygen saturations were monitored continuously. The colonoscopy was accomplished without difficulty. The patient tolerated the procedure well. Findings: On digital rectal examination there was normal rectal tone. There were no external hemorrhoids. The colonoscope was introduced through the anal canal to the rectum and advanced to the cecum. The ileocecal valve and appendiceal orifice were identified. The scope was advanced a short distance into the ileum which appeared grossly normal. The scope was then withdrawn into the colon. The cecum, ascending and transverse colon and mucosa were grossly normal. There were scattered diverticuli throughout the descending and sigmoid colon (LEFT colon). There were 2 polyps in the rectosigmoid (4 and 7 mm) which were both removed via cold snare polypectomy. The rectum itself was normal. Upon retroflexion within the rectum there were grade 1-2 internal hemorrhoids. The preparation was excellent throughout with Spencer Preparation Score of 9. The cecal time was 11 minutes. Impression: 1. Colonic polyps x 2 2. Left-sided diverticulosis 3. Grade 1-2 internal hemorrhoids Plan: I will follow-up the polyp histology and recommend repeat surveillance colonoscopy again in 7 to 10 years based upon the pathology. I would encourage psyllium bulking fiber supplementation on a long-term daily maintenance basis.
[2024-07-21 10:08] VITALS: BP 117/69; PULSE 81; RESP 18; TEMP 36.3; O2SAT 100
[2024-07-21 10:18] VITALS: BP 123/69; PULSE 74; RESP 18; O2SAT 100
[2024-07-21 10:28] VITALS: BP 156/93; PULSE 74; RESP 18; O2SAT 100
[2024-07-21 10:38] VITALS: BP 129/83; PULSE 81; RESP 18; O2SAT 100
== END 2024-07-21 10:45 | disposition home or self-care (01) ==
PROVIDERS: PCP Nurse Practitioner Family; Visit Provider Internal Medicine Gastroenterology
PROC: 0DJD8ZZ Inspection of Lower Intestinal Tract, Via Natural or Artificial Opening Endoscopic (ICD-10-PCS; CPT 45378; principal; 2024-07-21 09:00)
DX: Z12.11 Encounter for screening for malignant neoplasm of colon (principal); K63.5 Polyp of colon; K57.30 Diverticulosis of large intestine without perforation or abscess without bleeding; K64.8 Other hemorrhoids
CPT/HCPCS: 45385; J7120